=== PATIENT | male | born 1965 | race Caucasian/White ===

== ENCOUNTER → 2017-12-30 | Outpatient (CLI) | payer BC, OTHER ==
--- NOTE | 2017-12-30 08:18 | DIAGNOSTIC IMAGING REPORT ---
FUSION CT SINUSES W/O HISTORY: 52 years-old Male R43.0 [id number] MALE WITH ANOSMIA, LEFT SEPTAL DEVIATIO nasal septal deviation COMPARISON: None available TECHNIQUE: Multiple axial CT images of the paranasal sinuses were obtained without the use of IV contrast. A dose lowering technique was used consistent with the principals of BARB. FINDINGS: Imaged intracranial structures demonstrate no acute abnormality. Soft tissues and orbits are within normal limits. No calvarial fracture. Mastoid air cells and middle ear cavities are clear. No facial bone fracture or dislocation identified. Sphenoid sinuses are clear. There is minimal mucosal thickening about the right frontal sinus. 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 Maxillary sinuses are clear. There is hypoplasia/white loss about the left maxillary sinus. Minimal mucosal thickening of the ethmoid air cells. 3 mm leftward bowing and spurring of the nasal septum. Bilateral maxillary ostemia units, sphenoethmoidal and frontoethmoidal recesses are patent. No Timoteo cell or neelam bullosa. Yue an appears normal. IMPRESSION: 1. Minimal paranasal sinus disease as above with patency of the sinus outflow tracts. 2. 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 3. Minimal leftward bowing of the nasal septum. The above report was generated using voice recognition software. It may contain grammatical, syntax or spelling errors. Electronically signed by: Brock Lugo M.D. 12/30/2017 8:16 AM Dictated Date/Time: 12/30/2017 8:05 AM
== END | disposition home or self-care (01) ==
LOC: C.CTS 07:39
DX: R43.0 Anosmia (principal); J01.80 Other acute sinusitis